=== PATIENT | male | born 1985 ===

== ENCOUNTER 2021-03-08 13:34 | Emergency (ER) | payer BC ==
--- NOTE | 2021-03-08 14:28 | EDM.PDOC ---
ED HPI GENERAL MEDICAL PROBLEM - General Chief Complaint: Headache Stated Complaint: migraine Time Seen by Provider: 03/08/21 13:35 Source of Information: Reports: Patient History Limitations: Reports: No Limitations - History of Present Illness INITIAL COMMENTS - FREE TEXT/NARRATIVE: HISTORY AND PHYSICAL: History of present illness: Patient is a 35-year-old male presents to the emergency room with complaints of migraine headache. Patient states he has a history of a prolactinoma, has had this diagnosis for many years. He previously had been seeing a provider at [facility], although has not had any form of treatment for this in "a while". States migraines are typical although usually alleviated with Tylenol and/or ibuprofen. He states this particular migraine started yesterday evening and has not resolved. He has light sensitivity, noise sensitivity and nausea. This morning he had stood up quickly from a lying down position and felt like he was going to lose consciousness. This concerned him, he decided to come to the emergency room today for evaluation. Patient denies any fever, chills, change in vision, syncope, chest pain, back pain, shortness of breath or cough. Denies any abdominal pain, vomiting, diarrhea, constipation or dysuria. Has not noted any blood in urine or stool. Patient has been eating and drinking appropriately. Review of systems: As per history of present illness and below otherwise all systems reviewed and negative. Past medical history: As per history of present illness and as reviewed below otherwise noncontributory. Surgical history: As per history of present illness and as reviewed below otherwise noncontributory. Social history: See social history for further information Family history: As per history of present illness and as reviewed below otherwise noncontributory. Physical exam: General: Well developed and well nourished 35-year-old male. Alert and orientated x 3. Nontoxic in appearance and in no acute distress. Vital signs are stable and have been reviewed by me. Nursing notes were reviewed. HEENT: Atraumatic, normocephalic, pupils equal and reactive bilaterally, negative for conjunctival pallor or scleral icterus, mucous membranes moist, TMs normal bilaterally, throat clear, neck supple, nontender, trachea midline. No drooling or trismus noted. No meningeal signs. No hot potato voice noted. Lungs: Clear to auscultation bilaterally. No wheezes, rales, or rhonchi. Chest nontender. Normal work of breathing, no accessory muscles used. Heart: S1S2, regular rate and rhythm without overt murmur, gallops, or rubs. No JVD. No peripheral edema Abdomen: Soft, nondistended, nontender. Skin: Intact, warm, dry. No lesions or rashes noted. Hematologic: No petechiae or purpra. Mucosa appropriate color and normal nail bed color and refill. Extremities: Atraumatic, moves all extremities per self without difficulty or deficits, negative for cords or calf pain. Neurovascular unremarkable. Neuro: Awake, alert, oriented. Cranial nerves II through XII unremarkable. Cerebellum unremarkable. Motor and sensory unremarkable throughout. Exam nonfocal. Psychiatric: Mood and affect are appropriate. Normal thought process. Answering questions appropriately. Notes: *This patient was seen and evaluated during the 2019 SARS-CoV-2 novel coronavirus pandemic period. Community viral transmission is ongoing at time of this encounter and the emergency department is operating under pandemic response procedures. Patient is a 35-year-old male who presents to the emergency room with complaints of migraine headache. Patient does have a longstanding history of a known prolactinoma. He states migraines are typical for him although became nervous when he felt like he was going to pass out when he stood up too quickly this morning. Typically uses Tylenol and/or ibuprofen although has not helped. Patient states he has not seen a provider for management of this in several years. Has not had any recent imaging, last had an MRI 2 to [address] [place] shows no evidence of acute cortical infarct. No acute intracranial hemorrhage. No other acute intracranial findings are noted. Patient feels improved after the IV fluids and medications. VSS. I have talked with the patient about today's findings, in addition to providing specific details for plan of care. Reassessment at the time of disposition demonstrates that the patient is in no acute distress. The patient is stable for discharge, counseling was provided and we discussed in great detail signs and symptoms that would prompt them to return to the Emergency Department. Medication, follow up and supportive care measures were reviewed and discussed. Voices understanding and is agreeable to plan of care. Denies any further questions or concerns at this time. Diagnostics: Head CT, EKG Therapeutics: IV fluids, Zofran, Toradol, Benadryl, Reglan Prescription: None Impression: Migraine headache History of prolactinoma Plan: 1. You were evaluated today on an emergent basis. Your head CT showed no acute findings today. I would like you to establish with an sleeping car porter (Dr. Jose Wallace at [facility] in [place]) or neurologist (Dr Mahan at [facility] in [place]) for further care and management. 2. You can alternate Tylenol and ibuprofen as needed for pain and fever management. 3. We encourage you to follow up with your primary care provider and/or recommended specialist in the next few days for re-evaluation and further care/management. 4. If your symptoms should worsen, new symptoms develop or any of the signs and symptoms we discussed should arise please return to the emergency room or call 911 (if needed). Definitive disposition and diagnosis as appropriate pending reevaluation and review of above. headache Pain Score (Numeric/FACES): 8 - Related Data Allergies Allergy/AdvReac Type Severity Reaction Status Date / Time No Known Allergies Allergy Verified 03/08/21 14:49 Home Meds: Home Meds Multivitamin [One-Daily Multi-Vitamin] 1 tab PO DAILY 03/08/21 [History] ED ROS GENERAL - Review of Systems Review Of Systems: Comprehensive ROS is negative, except as noted in HPI. - Physical Exam Exam: See Below (See dictation) Course - Vital Signs Last Recorded V/S: Last Vital Signs Temp 95.6 F L 03/08/21 14:46 Pulse 88 03/08/21 14:46 Resp 17 03/08/21 14:46 BP 126/87 03/08/21 14:46 Pulse Ox 96 03/08/21 14:46 Orthostatic Blood Pressure [] 130/108 Orthostatic Blood Pressure [] 138/67 Orthostatic Blood Pressure [] 131/84 - Orders/Labs/Meds Orders: Active Orders 24 hr Category Date Time Status EKG Documentation Completion [RC] STAT Care 03/08/21 14:50 Ordered Orthostatic Vital Signs [RC] ASDIRECTED Care 03/08/21 14:50 Ordered Meds: Medications Discontinued Medications Generic Name Dose Route Start Last Admin Trade Name Freq PRN Reason Stop Dose Admin Diphenhydramine HCl 50 mg 03/08/21 14:50 03/08/21 14:56 Diphenhydramine 50 Mg/Ml Sdv IVPUSH 03/08/21 14:51 50 mg ONETIME ONE Administration Sodium Chloride 1,000 mls @ 999 mls/hr 03/08/21 14:50 03/08/21 14:56 Normal Saline IV 03/08/21 15:50 999 mls/hr STAT ONE Administration Ketorolac Tromethamine 30 mg 03/08/21 14:50 03/08/21 15:01 Ketorolac 30 Mg/Ml Sdv IVPUSH 03/08/21 14:51 30 mg ONETIME ONE Administration Metoclopramide HCl 10 mg 03/08/21 14:50 03/08/21 15:02 Metoclopramide 10 Mg/2 Ml Sdv IV 03/08/21 14:51 10 mg ONETIME ONE Administration Ondansetron HCl 4 mg 03/08/21 14:50 03/08/21 14:59 Ondansetron 4 Mg/2 Ml Sdv IVPUSH 03/08/21 14:51 4 mg ONETIME ONE Administration Departure - Departure Time of Disposition: 16:01 Disposition: Home, Self-Care 01 Clinical Impression: Migraine, History of prolactinoma - Discharge Information Instructions: Migraine Headache, [id number] Referrals: PCP,None [Primary Care Provider] - Forms: ED Department Discharge Additional Instructions: The following information is given to patients seen in the emergency department who are being discharged to home. This information is to outline your options for follow-up care. We provide all patients seen in our emergency department with a follow-up referral. The need for follow-up, as well as the timing and circumstances, are variable depending upon the specifics of your emergency department visit. If you don't have a primary care physician on staff, we will provide you with a referral. We always advise you to contact your personal physician following an emergency department visit to inform them of the circumstance of the visit and for follow-up with them and/or the need for any referrals to a consulting specialist. The emergency department will also refer you to a specialist when appropriate. This referral assures that you have the opportunity for follow-up care with a specialist. All of these measure are taken in an effort to provide you with optimal care, which includes your follow-up. Under all circumstances we always encourage you to contact your private physician who remains a resource for coordinating your care. When calling for follow-up care, please make the office aware that this follow-up is from your recent emergency room visit. If for any reason you are refused follow-up, please contact the [facility] Emergency Department at and asked to speak to the emergency department charge nurse. [facility] Primary Care: Dr Mahan [address] [place] [id number] Thank you for choosing the [facility] emergency department in [place] for your medical needs today. It was a pleasure caring for you. Today you were seen in the emergency department for migraine headache. 1. You were evaluated today on an emergent basis. Your head CT showed no acute findings today. I would like you to establish with an sleeping car porter (Dr. Jose Wallace at [facility] in [place]) or neurologist (Dr Mahan at [facility] in [place]) for further care and management. 2. You can alternate Tylenol and ibuprofen as needed for pain and fever management. 3. We encourage you to follow up with your primary care provider and/or recommended specialist in the next few days for re-evaluation and further care/management. 4. If your symptoms should worsen, new symptoms develop or any of the signs and symptoms we discussed should arise please return to the emergency room or call 911 (if needed). Sepsis Event Note (ED) - Focused Exam Vital Signs: Vital Signs Temp Pulse Resp BP Pulse Ox 03/08/21 14:46 95.6 F L 88 17 126/87 96 - My Orders Last 24 Hours: My Active Orders 03/08/21 14:50 EKG Documentation Completion [RC] STAT Orthostatic Vital Signs [RC] ASDIRECTED - Assessment/Plan Last 24 Hours: My Active Orders 03/08/21 14:50 EKG Documentation Completion [RC] STAT Orthostatic Vital Signs [RC] ASDIRECTED
[2021-03-08] MEDS ORDERED: Ketorolac 30 MG/ML SDV IVPUSH ONE (14:50)
[2021-03-08] MEDS ORDERED: diphenhydrAMINE 50 MG/ML SDV IVPUSH ONE (14:50)
[2021-03-08] MEDS ORDERED: Ondansetron 4 MG/2 ML SDV IVPUSH ONE (14:50)
[2021-03-08] MEDS ORDERED: Metoclopramide 10 MG/2 ML SDV IV ONE (14:50)
[2021-03-08] MEDS ORDERED: Sodium Chloride 0.9% 1,000 ML IV ONE (14:50)
--- NOTE | 2021-03-08 15:08 | PCM.EKG ---
#1 Interpretation EKG Date: 03/08/21 Time: 15:04 Rhythm: NSR Rate (Beats/Min): 65 Klemme: Normal P-Wave: Present QRS: Normal ST-T: Normal QT: Normal IL/PQ Interval: 166 Comparison: NA - No Prior EKG EKG Interpretation Comments: normal EKG, no ischemic changes
--- NOTE | 2021-03-08 15:51 | CT ---
INDICATION: Migraines. Head pain. TECHNIQUE: CT of the head without contrast. Coronal and sagittal reformats are included. COMPARISON: None. FINDINGS: No CT evidence of acute cortical infarct. No loss of [place] white matter differentiation. No hyperdense vessels to suggest intracranial thrombus. No acute intracranial hemorrhage. No mass effect or midline shift. No hydrocephalus or extra-axial collections. White matter is within normal limits for age. No acute osseous abnormalities. Mastoid air cells and paranasal sinuses are clear. Normal soft tissues. IMPRESSION: IMPRESSION:1. No CT evidence of acute cortical infarct. No acute intracranial hemorrhage. No other acute intracranial findings. Please note that all CT scans at this facility use dose modulation, iterative reconstruction, and/or weight-based dosing when appropriate to reduce radiation dose to as low as reasonably achievable. Dictated by Bryant Scruggs MD @ 03/08/2021 3:49:[address] Bryant Scruggs @ Mar 08 2021 3:49PM
== END 2021-03-08 16:21 | disposition home or self-care (01) ==
LOC: MW.ED 13:34
DX: G43.909 Migraine, unspecified, not intractable, without status migrainosus (principal); Z86.39 Personal history of other endocrine, nutritional and metabolic disease
CPT/HCPCS: 70450; 93005; 96374; 96375; 99284; J1200; J1885; J2405; J2765; J7030

== ENCOUNTER 2021-08-23 15:45 | Emergency (ER) | payer BC ==
--- NOTE | 2021-08-23 16:01 | EDM.PDOC ---
ED HPI GENERAL MEDICAL PROBLEM - General Chief Complaint: Respiratory Problem Stated Complaint: "COVID POSITIVE, SOB" Time Seen by Provider: 08/23/21 15:46 Source of Information: Reports: Patient History Limitations: Reports: No Limitations - History of Present Illness INITIAL COMMENTS - FREE TEXT/NARRATIVE: HISTORY AND PHYSICAL: History of present illness: Patient is a 36-year-old male who presents to the emergency room with complaints of cough, shortness of breath and body aches x 9-10 days. His significant other tested positive for COVID-19 on 08/19/2021. He states he works from home so he did not get tested but has been quarantining at home as if he were positive. Today she decided to come to the emergency room for evaluation, he wanted to come as well as the cough is not improving. Patient denies any fever, chills, headache, change in vision, syncope or near syncope. Denies any chest pain, back pain, abdominal pain, nausea, vomiting, diarrhea, constipation or dysuria. Has not noted any blood in urine or stool. Patient has been eating and drinking appropriately. No recent travel or sick contacts. Review of systems: As per history of present illness and below otherwise all systems reviewed and negative. Past medical history: As per history of present illness and as reviewed below otherwise noncontributory. Surgical history: As per history of present illness and as reviewed below otherwise noncontributory. Social history: See social history for further information Family history: As per history of present illness and as reviewed below otherwise noncontributory. Physical exam: General: Well developed and well nourished. Alert and orientated x 3. Nontoxic in appearance and in no acute distress. Vital signs are stable and have been reviewed by me. Nursing notes were reviewed. HEENT: Atraumatic, normocephalic, pupils equal and reactive bilaterally, negative for conjunctival pallor or scleral icterus, mucous membranes moist, TMs normal bilaterally, throat clear, neck supple, nontender, trachea midline. No drooling or trismus noted. No meningeal signs. No hot potato voice noted. Lungs: Clear to auscultation bilaterally. No wheezes, rales, or rhonchi. Chest nontender. Normal work of breathing, no accessory muscles used. Dry nonproductive cough noted. Heart: S1S2, regular rate and rhythm without overt murmur, gallops, or rubs. No JVD. No peripheral edema Abdomen: Soft, nondistended, nontender. Normoactive bowel sounds. Negative for masses or costovertebral tenderness. Skin: Intact, warm, dry. No lesions or rashes noted. Hematologic: No petechiae or purpra. Mucosa appropriate color and normal nail bed color and refill. Extremities: Atraumatic, moves all extremities per self without difficulty or deficits, negative for cords or calf pain. Neurovascular unremarkable. Neuro: Awake, alert, oriented. Cranial nerves II through XII unremarkable. Cerebellum unremarkable. Motor and sensory unremarkable throughout. Exam nonfocal. Psychiatric: Mood and affect are appropriate. Normal thought process. Answering questions appropriately. Please note that the patient was seen and evaluated during the 2019 SARS-CoV-2 novel coronavirus pandemic period. Community viral transmission is ongoing at time of this encounter and the emergency department is operating under pandemic response procedures. Medical Decision Making: Chest x-ray shows left basilar atelectasis. No other focal pulmonary opacities. Vital signs are stable. I have talked with the patient about today's findings, in addition to providing specific details for plan of care. Reassessment at the time of disposition demonstrates that the patient is in no acute distress. The patient is stable for discharge, counseling was provided and we discussed in great detail signs and symptoms that would prompt them to return to the Emergency Department. Medication, follow up and supportive care measures were reviewed and discussed. Voices understanding and is agreeable to plan of care. Denies any further questions or concerns at this time. Diagnostics: Chest x-ray Therapeutics: Tesneelima [place], Toradol Prescription: Cheratussin (#4oz) Impression: COVID-19 Plan: 1. You were evaluated today on an emergent basis. Chest x-ray shows no evidence of infection. COVID-19 is contagious (STAY HOME PLEASE). Your vital signs and oxygen saturation are well enough that you were able to monitor your symptoms at home. Continue to monitor for trouble breathing, new confusion or inability to arouse, bluish lips or face or any of the other symptoms we discussed -if this occurs please return to the emergency room immediately. 2. Please self quarantine until cleared by [facility] Department. Inform any persons that you have been in contact with since you started becoming symptomatic that you have tested positive; they should be made aware and take the appropriate steps as needed. 3. You can take NyQuil during the evening to help get a restful night sleep. May alternate Tylenol and ibuprofen as needed for pain and fever management. 4. The [facility] department will be calling you and following up with you. The [place] [facility] Hotline phone number , They are open Thursday - Thursday 7am - 7pm. Follow up with your primary care provider for re-evaluation as directed. Definitive disposition and diagnosis as appropriate pending reevaluation and review of above. Duration: Week(s): - Related Data Allergies Allergy/AdvReac Type Severity Reaction Status Date / Time No Known Allergies Allergy Verified 08/23/21 16:01 Home Meds: Home Meds Multivitamin [One-Daily Multi-Vitamin] 1 tab PO DAILY 03/08/21 [History] metFORMIN [Glucophage XR] 500 mg PO 08/23/21 [History] Past Medical History HEENT History: Reports: None Cardiovascular History: Reports: None Respiratory History: Reports: None Gastrointestinal History: Reports: None Genitourinary History: Reports: None Musculoskeletal History: Reports: None Neurological History: Reports: Other (See Below) Other Neuro History: Hx Brain tumor Psychiatric History: Reports: None Endocrine/Metabolic History: Reports: None Hematologic History: Reports: None Immunologic History: Reports: None Oncologic (Cancer) History: Reports: None Dermatologic History: Reports: None - Infectious Disease History Infectious Disease History: Reports: None - Past Surgical History Head Surgeries/Procedures: Reports: None HEENT Surgical History: Reports: None Cardiovascular Surgical History: Reports: None Respiratory Surgical History: Reports: None GI Surgical History: Reports: None Male Surgical History: Reports: None Endocrine Surgical History: Reports: None Neurological Surgical History: Reports: None Musculoskeletal Surgical History: Reports: None Oncologic Surgical History: Reports: None Dermatological Surgical History: Reports: None Social & Family History - Family History Family Medical History: No Pertinent Family History - Caffeine Use Caffeine Use: Reports: None ED ROS GENERAL - Review of Systems Review Of Systems: Comprehensive ROS is negative, except as noted in HPI. ED EXAM, GENERAL - Physical Exam Exam: See Below (See dictation) Course - Vital Signs Last Recorded V/S: Last Vital Signs Temp 97.4 F 08/23/21 15:58 Pulse 119 H 01/07/22 15:58 Resp 22 H 08/23/21 15:58 BP 130/87 08/23/21 15:58 Pulse Ox 96 08/23/21 16:30 - Orders/Labs/Meds Meds: Medications Discontinued Medications Generic Name Dose Route Start Last Admin Trade Name Kayce PRN Reason Stop Dose Admin Benzonatate 200 mg 08/23/21 16:07 08/23/21 16:17 Benzonatate 100 Mg Cap PO 08/23/21 16:08 200 mg ONETIME ONE Administration Ketorolac Tromethamine 60 mg 08/23/21 16:07 08/23/21 16:17 Ketorolac 60 Mg/2 Ml Sdv IM 08/23/21 16:08 60 mg ONETIME ONE Administration Departure - Departure Time of Disposition: 16:59 Disposition: Home, Self-Care 01 Clinical Impression: COVID-19 - Discharge Information Instructions: 10 Things You Can Do to Manage Your COVID-19 Symptoms at Home - [facility] (03/01/2021) Referrals: PCP,None [Primary Care Provider] - Forms: ED Department Discharge Additional Instructions: The following information is given to patients seen in the emergency department who are being discharged to home. This information is to outline your options for follow-up care. We provide all patients seen in our emergency department with a follow-up referral. The need for follow-up, as well as the timing and circumstances, are variable depending upon the specifics of your emergency department visit. If you don't have a primary care physician on staff, we will provide you with a referral. We always advise you to contact your personal physician following an emergency department visit to inform them of the circumstance of the visit and for follow-up with them and/or the need for any referrals to a consulting specialist. The emergency department will also refer you to a specialist when appropriate. This referral assures that you have the opportunity for follow-up care with a specialist. All of these measure are taken in an effort to provide you with optimal care, which includes your follow-up. Under all circumstances we always encourage you to contact your private physician who remains a resource for coordinating your care. When calling for follow-up care, please make the office aware that this follow-up is from your recent emergency room visit. If for any reason you are refused follow-up, please contact the [facility] Emergency Department at and asked to speak to the emergency department charge nurse. [facility] Primary Care [address] [place] [address] [facility] [address] [place] [id number] Thank you for choosing the [facility] emergency department in [place] for your medical needs today. It was a pleasure caring for you. Today you were seen in the emergency department for COVID symptoms. 1. You were evaluated today on an emergent basis. Chest x-ray shows no evidence of infection. COVID-19 is contagious (STAY HOME PLEASE). Your vital signs and oxygen saturation are well enough that you were able to monitor your symptoms at home. Continue to monitor for trouble breathing, new confusion or inability to arouse, bluish lips or face or any of the other symptoms we discussed -if this occurs please return to the emergency room immediately. 2. Please self quarantine until cleared by [facility] Department. Inform any persons that you have been in contact with since you started becoming symptomatic that you have tested positive; they should be made aware and take the appropriate steps as needed. 3. You can take NyQuil during the evening to help get a restful night sleep. May alternate Tylenol and ibuprofen as needed for pain and fever management. 4. The [facility] department will be calling you and following up with you. The [place] COVID 19 Hotline phone number , They are open Thursday - Thursday 7am - 7pm. Follow up with your primary care provider for re-evaluation as directed. Sepsis Event Note (ED) - Focused Exam Vital Signs: Vital Signs Temp Pulse Resp BP Pulse Ox 08/23/21 16:30 96 08/23/21 15:58 97.4 F 119 H 22 H 130/87 90 L
[2021-08-23] MEDS ORDERED: Ketorolac 60 MG/2 ML SDV IM ONE (16:07)
[2021-08-23] MEDS ORDERED: Benzonatate 100 MG Cap PO ONE (16:07)
--- NOTE | 2021-08-23 16:56 | CR ---
INDICATION: Pain. Shortness of breath. FINDINGS: A single portable chest x-ray shows a normal cardiac silhouette. The lungs are hypoventilated and show a left basilar atelectasis. Sharp pleural margins. No pneumothorax. IMPRESSION: Left basilar atelectasis. No other focal pulmonary opacities. Dictated by Hola Diaz MD @ 08/23/2021 4:54:59 PM (Electronically Signed)
== END 2021-08-23 17:35 | disposition home or self-care (01) ==
LOC: MW.ED 15:45
DX: U07.1 COVID-19 (principal)
CPT/HCPCS: 71045; 96372; 99284; A9270; J1885